=== PATIENT | female | born 2000 | race Caucasian/White ===

== ENCOUNTER 2024-05-25 06:00 | Emergency (ER) | payer OTHER ==
[2024-05-25 07:43] LABS: Hematocrit 43.2 % (36.0-47.0); Hemoglobin 13.3 g/dL (12.0-16.0); Mean Corpuscular HGB CONC 30.8 g/dL (32.0-36.0); Mean Corpuscular Hemoglobin 26.5 pg (27.0-31.0); Mean Corpuscular Volume 86.2 fl (78.0-98.0); Mean Platelet Volume 7.3 fL (7.4-10.4); Platelet Count 302 10x3/uL (130-400); Red Blood Cell (RBC) Count 5.01 mill/uL (4.20-5.40); White Blood Cell (WBC) Count 9.2 10x3/uL (4.8-10.8)
[2024-05-25 07:52] LABS: Band 2 % (5-11); Lymphocytes 26 % (21-51); MDiff Complete? YES; Manual Diff?? YES; Monocytes 7 % (0-10); Neutrophil 57 % (42-75)
[2024-05-25 07:53] LABS: Eosinophils 8 % (0-10); Platelet Adequacy Comment Appears Adequate; RBC Morph Comment Within Normal Limits
[2024-05-25 07:55] LABS: BHCG - Serum Negative (NEGATIVE); Pregs Control Background? CLEAR/WHITE (CLR/WHITE); Pregs Control Bar Appear? YES (CONTROL BAR)
[2024-05-25 07:55] LABS: ALT (SGPT) 17 U/L (8-55); AST (SGOT) 17 U/L (5-34); Albumin 3.3 g/dL (3.5-5.0); Alkaline Phosphatase 71 U/L (40-110); Anion Gap 16 mmol/L (10-20); BUN (Urea Nitrogen) 13 mg/dL (7.0-18.7); Bilirubin, Total 0.2 mg/dL (0.2-1.2); CK (CPK) 69 U/L (29-168); Calc. Creatinine Clearance 0 mL/min (70-130); Calcium 8.9 mg/dL (7.8-10.44); Carbon Dioxide 19 mmol/L (22-29); Chloride 107 mmol/L (98-107); Estimated GFR 113; Globulin 3.3 g/dL (2.4-3.5); Glucose 93 mg/dL (70-105); Potassium 4.4 mmol/L (3.5-5.1); Protein, Total 6.6 g/dL (6.0-8.3); Sodium 138 mmol/L (136-145)
[2024-05-25] MEDS ORDERED: Acetaminophen 500 MG TAB ONE (08:00)
[2024-05-25] MEDS ORDERED: methylPREDNISolone Sod Succ/PF 125 MG/2 ML VIAL ONE (08:00)
[2024-05-25] MEDS ORDERED: Lactated Ringer's 1,000 ML ONE (08:00)
[2024-05-25] MEDS ORDERED: Prochlorperazine 10 MG/2 ML VIAL ONE (08:00)
[2024-05-25] MEDS ORDERED: diphenhydrAMINE 50 MG/ML VIAL ONE (08:00)
[2024-05-25 08:13] LABS: Troponin I Less than 0.010 ng/mL (< 0.028)
[2024-05-25] MEDS ORDERED: Ketorolac Tromethamine 30 MG (1 mL) VIAL ONE (09:47)
== END 2024-05-25 10:50 | disposition home or self-care (01) ==
LOC: MADERS 06:00
DX: R51.9 Headache, unspecified (principal); M54.2 Cervicalgia; M54.50 Low back pain, unspecified; F17.210 Nicotine dependence, cigarettes, uncomplicated; V89.2XXA Person injured in unspecified motor-vehicle accident, traffic, initial encounter
CPT/HCPCS: 70450; 71045; 72100; 72125; 80053; 82550; 84484; 84703; 85025; 93005; 96374; 96375; J0780; J1200; J1885; J2919; J7120

== ENCOUNTER 2024-06-01 04:06 | Emergency (ER) | payer BC, SELFPAY | END 2024-06-01 04:46 | disposition home or self-care (01) | LOC: MADERS 04:06 | DX: B37.2 Candidiasis of skin and nail (principal); F17.210 Nicotine dependence, cigarettes, uncomplicated | CPT/HCPCS: 99283 ==